=== PATIENT | male | born 1990 | race Caucasian/White ===

== ENCOUNTER 2025-02-13 08:00 | Emergency (ER) | payer OTHER ==
[~2025-02-13] VITALS: Ht 188 cm; Wt 104.5 kg
[2025-02-13] MEDS ORDERED: ASPIRIN 81 MG CHEW PO ONE (08:15)
[2025-02-13] MEDS ORDERED: ZESTRIL40 MG PO (08:15)
[2025-02-13] MEDS ORDERED: NITROGLYCERIN 0.4 MG SUBL SL PRN (08:15)
[2025-02-13] MEDS ORDERED: LIPITOR20 MG PO (08:16)
[2025-02-13] MEDS ORDERED: XIGDUO XR 10 M1 EAC1 PO (08:17)
[2025-02-13] MEDS ORDERED: OZEMPIC1 MG/0.71 SUB-Q (08:17)
[2025-02-13] MEDS ORDERED: XANAX0.25 MG PO (08:18)
[2025-02-13] MEDS ORDERED: LORazepam 1 MG TAB PO ONE (08:30)
[2025-02-13 08:52] LABS: BASOPHILS 0.6 % (0.2-1.2); EOSINOPHILS 1.0 % (0.8-7.0); LYMPHOCYTES 13.7 % (21.8-53.1); MCH 30.2 PG (25.7-32.2); MCHC 34.2 g/dL (32.3-36.5); MCV 88.3 fL (79.0-92.2); MONOCYTES 7.8 % (5.3-12.2); NEUTROPHILS 76.7 % (34.0-67.9); RBC 4.96 M/uL (4.63-6.08)
[2025-02-13 09:18] LABS: ALT (SGPT) 50.0 U/L (14-59); AST (SGOT) 22.0 U/L (15-37); GLOMERULAR FILTRATION RATE,EST 99.0 mL/min (>60); PROTEIN, TOTAL 7.9 g/dL (6.4-8.2); UREA NITROGEN 14.0 mg/dL (7-18)
[2025-02-13] MEDS ORDERED: SODIUM CHLORIDE 0.9% 1,000 ML IV PRN (10:15)
[2025-02-13] MEDS ORDERED: LIDOCAINE & ANTACID 35 ML BTL PO ONE (12:30)
[2025-02-13] MEDS ORDERED: PEPCID20 MG PO (12:59)
[2025-02-13] MEDS ORDERED: ATIVAN1 MG PO (12:59)
[2025-02-13] MEDS ORDERED: OMEPRAZOLE20 MG PO (12:59)
[2025-02-13 13:10] VITALS: BP 156/116
--- NOTE | 2025-02-13 14:06 | EKG ---
[facility] [address] [facility] [place] [address] Signed Sinus tachycardia T wave abnormality, consider inferior ischemia Abnormal ECG No previous ECGs available Confirmed by Ara Ware MD () on 02/13/2025 2:06:12 PM Electronically Signed By: ARA WARE MD 02/13/25 1406 PATIENT NAME: YARA UNDERWOOD Electrocardiogram DATE OF : 89 PHYSICIAN: ARA WARE MD REPORT #: [id number] REPORT IS CONFIDENTIAL AND NOT TO BE RELEASED WITHOUT AUTHORIZATION
== END 2025-02-13 13:05 | disposition home or self-care (01) ==
LOC: ED 08:00
PROVIDERS: Emergency Medicine
DX: K20.90 Esophagitis, unspecified without bleeding (principal); R07.2 Precordial pain; E11.9 Type 2 diabetes mellitus without complications; I10 Essential (primary) hypertension; Z79.899 Other long term (current) drug therapy; Z88.1 Allergy status to other antibiotic agents
CPT/HCPCS: 36415; 71045; 71260; 80053; 83735; 84484; 85025; 93005; 93010; 99285-25; A9270; A9270-GY; J7030; Q9967